=== PATIENT | male | born 1940 | race Caucasian/White ===

== ENCOUNTER → 2017-08-20 | Outpatient (CLI) | payer OTHER ==
[~2017-08-20] MED LIST: ADVAIR 100-501 EACH INH; ASPIRIN325; B12INJ PO; KEFLEX500 MG PO; LISINOPRIL20 MG PO; PERCOCET 5-3251 EACH PO; PRAVACHOL40 MG PO; TAMSULOSIN HCL0.4 MG PO; ZOFRAN4 MG PO
== END ==
LOC: ULTRA 14:05
DX: M25.462 Effusion, left knee (principal); M79.605 Pain in left leg

== ENCOUNTER → 2019-11-16 | Outpatient (CLI) | payer OTHER | LOC: CAT 15:33 | DX: J98.11 Atelectasis (principal); N28.1 Cyst of kidney, acquired; N13.2 Hydronephrosis with renal and ureteral calculous obstruction; K57.30 Diverticulosis of large intestine without perforation or abscess without bleeding; K40.20 Bilateral inguinal hernia, without obstruction or gangrene, not specified as recurrent ==